=== PATIENT | female | born 1955 | race Caucasian/White ===

== ENCOUNTER 2016-11-09 06:26 | Inpatient (IN) | payer BC ==
[2016-11-08 12:10] LABS: WBC (NOT ORDERED) (RFLEX) 0 (0-5)
[2016-11-08 12:54] LABS: BASOPHILS 0.5 %; BASOPHILS ABSOLUTE 0.04 10/3/uL (0.0-0.16); EOSINOPHILS 2.1 %; EOSINOPHILS ABSOLUTE 0.18 10/3/uL (0.0-0.53); HEMOGLOBIN 14.1 g/dL (12.0-16.0); IMMATURE GRANULOCYTES 0.2 %; IMMATURE GRANULOCYTES ABSOLUTE 0.02 10/3/uL (0.0-0.11); LYMPHOCYTES 18.9 %; LYMPHOCYTES ABSOLUTE 1.63 10/3/uL (0.67-4.30); MEAN CORPUS HGB CONC 33.7 g/dL (32.0-36.0); MEAN CORPUSCULAR HEMOGLOB 32.2 pg (26.0-34.0); MEAN CORPUSCULAR VOLUME 95.4 fL (80-100); MEAN PLATELET VOLUME 9.3 fL (9.2-13.0); MONOCYTES ABSOLUTE 0.69 10/3/uL (0.21-1.20); NEUTROPHILS 70.3 %; NEUTROPHILS ABSOLUTE 6.06 10/3/uL (2.02-8.40); PLATELET COUNT 319 10/3/uL (150-400); RBC DISTRIBUTION WIDTH 13.2 % (12.0-16.0); RED CELL COUNT 4.38 10/6/uL (4.0-5.6); WHITE BLOOD CELLS 8.6 10/3/uL (4.5-10.5)
[2016-11-08 12:55] LABS: HEMATOCRIT 41.8 % (36.0-48.0); MANUAL DIFF NO %
[2016-11-08 13:02] LABS: PROTIME (NOT ORD) 13.3 SEC (12.0-14.5)
[2016-11-08 13:13] LABS: A/G RATIO 1.3 (0.7-1.9); ALBUMIN 4.2 G/DL (3.5-5.0); ALKALINE PHOSPHATASE 69 U/L (45-117); BUN (BLOOD UREA NITROGEN) 8 MG/DL (6-23); CALCIUM, SERUM 9.4 MG/DL (8.5-10.4); CHLORIDE, SERUM 100 MMOL/L (96-112); CO2 (CARBON DIOXIDE) 30 MMOL/L (24-34); CREATININE 0.64 MG/DL (0.55-1.02); GFR AFRICAN AMERICAN 112 ML/MIN (>=60); GFR NON AFRICAN AMERICAN 96 ML/MIN (>=60); GLUCOSE, SERUM 80 MG/DL (60-99); POTASSIUM, SERUM 4.2 MMOL/L (3.5-5.3); SGOT(AST) 7 U/L (5-40); SGPT(ALT) 13 U/L (5-65); SODIUM, SERUM 139 MMOL/L (135-148); TOTAL BILIRUBIN 0.4 MG/DL (0-1.2); TOTAL PROTEIN 7.4 G/DL (6.0-8.5)
[2016-11-08 13:14] LABS: GLOBULIN 3.2 G/DL (2.5-4.1)
[2016-11-08 13:54] LABS: ASCORBIC ACID (UR NOT ORDER) NEG (NEG); BILIRUBIN, URINE NEGATIVE (NEG); KETONE, URINE NEGATIVE (NEG); LEUKOCYTE ESTERASE(NOT OR NEG (NEG)
--- NOTE | ~2016-11-09 | OP ---
Record Of Operation [facility] [address] [place]. [address] NAME: CAS VAN : 55 STATUS : ADM IN [facility]#: [id number] AGE: 61 ADM/REG DATE : 11/09/16 MR#: [id number] REPORT SERV DATE: 11/10/16 DICTATED BY: JULIAN SILVA JR. DATE: 11/09/16 REPORT STATUS : Draft TRANSCRIBED BY: EDDI DATE: 11/09/16 DATE OF PROCEDURE: 11/09/2016 PREOPERATIVE DIAGNOSES: History of previous esophageal cancer, status post chemotherapy and radiation therapy, previous left upper lobe squamous cell carcinoma, status post SBRT, chronic obstructive pulmonary disease with tobacco abuse, chronic pain, anxiety disorder, right upper lobe spindle cell carcinoma. POSTOPERATIVE DIAGNOSES: History of previous esophageal cancer, status post chemotherapy and radiation therapy, previous left upper lobe squamous cell carcinoma, status post SBRT, chronic obstructive pulmonary disease with tobacco abuse, chronic pain, anxiety disorder, right upper lobe spindle cell carcinoma. NAME OF OPERATION: Bronchoscopy, right thoracoscopy with exploration, right upper lobectomy, complete mediastinal node dissection, papito stations 4R, 7, 9, 11R, and intercostal nerve block. SURGEON: Dr. Julian Silva Jr. RESIDENT SURGEON: Dr. Zen Cole. CLOTH BALER: Vicente Lai. ANESTHESIA: General endotracheal. FINDINGS: The patient was noted to have large tumor contained within the right upper lobe. Surprisingly, there were minimal adhesions. She had a partially developed minor fissure and a fully developed major fissure. There were some fibrosis around the hilum, but we were able to dissect out the vessel safely. Margins were grossly negative. Final pathology is pending. DETAILS OF OPERATION: After adequate general anesthesia, the patient was intubated. Bronchoscopy was performed noting no endobronchial lesions. There was no contraindication to resection. Mucous secretions were evacuated. A left-sided double-lumen endotracheal tube was then placed. The patient was then positioned in the left lateral decubitus position. The right chest was prepped and draped in routine sterile fashion. A small incision was made overlying the lower intercostal space. A separate anterior trocar incision was also made. Through these two incision sites, above findings were noted. It was felt this tumor was resectable. The inferior pulmonary ligament was then taken down. The hilar structures were dissected out. The superior pulmonary vein was divided preserving the middle lobe branch. Pulmonary arterial branches were divided with a vascular stapler. Bronchus was divided with CHARLY stapler. The fissure was divided with multiple firings of CHARLY stapler with tissue reinforcements. Specimen was placed within the specimen bag and brought out through anterior trocar site. Nodes from the AP window, subcarinal, inferior pulmonary ligament, as well as hilar regions were removed. An intercostal nerve block was performed. Chest was thoroughly irrigated with sterile water. A 28-[place] chest tube was then placed. Record Of Operation [facility] [address] [place]. [address] NAME: CAS VAN : 55 STATUS : ADM IN [facility]#: [id number] AGE: 61 ADM/REG DATE : 11/09/16 MR#: [id number] REPORT SERV DATE: 11/10/16 DICTATED BY: JULIAN SILVA JR. DATE: 11/09/16 REPORT STATUS : Draft TRANSCRIBED BY: EDDI DATE: 11/09/16 The lung was reinflated. The trocar sites were closed with running Vicryl sutures. The skin was closed with running monofilament suture. A Dermabond dressing was applied. The procedure was terminated at this point. The patient tolerated the procedure well and taken back to recovery room in stable condition. JANEE/EDDI Julian Silva Jr., M.D. / [id number] CC: Cristiano Salazar Jr., MD
[~2016-11-09 06:26] MED LIST: ASABAYER PO; ATV1 PO; HABIT21 TOP; KLOR-CON20 MEQ PO; MELATONIN10 M2 PO; MULTIVIT/MIN PO; NYQUIL COLD & FLU PO; OXYCCODUDL PO; PROMETHAZI6.25 MG/5 PO; PROTONIX PO; PROVENT20 INH; PROVHFA INH; SPIRIVA INH; TRANSSCOP TOP; TYLENOL LIQUID PO; WELLXL150 PO
[2016-11-09 12:43] LABS: BASOPHILS 0.1 %; BASOPHILS ABSOLUTE 0.01 10/3/uL (0.0-0.16); EOSINOPHILS 1.2 %; EOSINOPHILS ABSOLUTE 0.11 10/3/uL (0.0-0.53); HEMATOCRIT 39.2 % (36.0-48.0); HEMOGLOBIN 13.2 g/dL (12.0-16.0); IMMATURE GRANULOCYTES 0.2 %; IMMATURE GRANULOCYTES ABSOLUTE 0.02 10/3/uL (0.0-0.11); LYMPHOCYTES 10.7 %; LYMPHOCYTES ABSOLUTE 1.02 10/3/uL (0.67-4.30); MEAN CORPUS HGB CONC 33.7 g/dL (32.0-36.0); MEAN CORPUSCULAR HEMOGLOB 31.9 pg (26.0-34.0); MEAN CORPUSCULAR VOLUME 94.7 fL (80-100); MEAN PLATELET VOLUME 8.9 fL (9.2-13.0); MONOCYTES ABSOLUTE 0.38 10/3/uL (0.21-1.20); NEUTROPHILS 83.8 %; NEUTROPHILS ABSOLUTE 8.02 10/3/uL (2.02-8.40); PLATELET COUNT 273 10/3/uL (150-400); RBC DISTRIBUTION WIDTH 13.2 % (12.0-16.0); RED CELL COUNT 4.14 10/6/uL (4.0-5.6); WHITE BLOOD CELLS 9.6 10/3/uL (4.5-10.5)
[2016-11-09 12:44] LABS: MANUAL DIFF NO %
[2016-11-09 12:55] LABS: BUN (BLOOD UREA NITROGEN) 10 MG/DL (6-23); CALCIUM, SERUM 8.5 MG/DL (8.5-10.4); CHLORIDE, SERUM 106 MMOL/L (96-112); CO2 (CARBON DIOXIDE) 26 MMOL/L (24-34); CREATININE 0.71 MG/DL (0.55-1.02); GFR AFRICAN AMERICAN 107 ML/MIN (>=60); GFR NON AFRICAN AMERICAN 92 ML/MIN (>=60); POTASSIUM, SERUM 4.4 MMOL/L (3.5-5.3); SODIUM, SERUM 138 MMOL/L (135-148)
[2016-11-09 12:57] LABS: GLUCOSE, SERUM 130 MG/DL (60-99)
[2016-11-10 04:52] LABS: BASOPHILS 0 %; EOSINOPHILS 0.1 %; EOSINOPHILS ABSOLUTE 0.01 10/3/uL (0.0-0.53); HEMATOCRIT 37.3 % (36.0-48.0); HEMOGLOBIN 12.4 g/dL (12.0-16.0); IMMATURE GRANULOCYTES 0.3 %; IMMATURE GRANULOCYTES ABSOLUTE 0.03 10/3/uL (0.0-0.11); LYMPHOCYTES 11.9 %; LYMPHOCYTES ABSOLUTE 1.28 10/3/uL (0.67-4.30); MEAN CORPUS HGB CONC 33.2 g/dL (32.0-36.0); MEAN CORPUSCULAR HEMOGLOB 31.8 pg (26.0-34.0); MEAN CORPUSCULAR VOLUME 95.6 fL (80-100); MEAN PLATELET VOLUME 9.5 fL (9.2-13.0); MONOCYTES 7.4 %; NEUTROPHILS 80.3 %; NEUTROPHILS ABSOLUTE 8.67 10/3/uL (2.02-8.40); PLATELET COUNT 254 10/3/uL (150-400); RBC DISTRIBUTION WIDTH 13.3 % (12.0-16.0); WHITE BLOOD CELLS 10.8 10/3/uL (4.5-10.5)
[2016-11-10 04:53] LABS: MANUAL DIFF NO %
[2016-11-10 05:11] LABS: BUN (BLOOD UREA NITROGEN) 9 MG/DL (6-23); CALCIUM, SERUM 8.4 MG/DL (8.5-10.4); CHLORIDE, SERUM 104 MMOL/L (96-112); CO2 (CARBON DIOXIDE) 24 MMOL/L (24-34); CREATININE 0.57 MG/DL (0.55-1.02); GFR AFRICAN AMERICAN 116 ML/MIN (>=60); GFR NON AFRICAN AMERICAN 100 ML/MIN (>=60); GLUCOSE, SERUM 129 MG/DL (60-99); POTASSIUM, SERUM 4.4 MMOL/L (3.5-5.3); SODIUM, SERUM 136 MMOL/L (135-148)
[2016-11-10] MEDS ORDERED: PCET PO (10:21)
== END 2016-11-10 13:46 | disposition home or self-care (01) | DRG 165 ==
LOC: SDC/OF 06:26 → PACU 12:33 → 5NO 14:02
PROVIDERS: Thoracic Surgery (Cardiothoracic Vascular Surgery)
PROC: 0BBC4ZZ Excision of Right Upper Lung Lobe, Percutaneous Endoscopic Approach (ICD-10-PCS; principal; 2016-11-09 08:15)
PROC: 07B74ZX Excision of Thorax Lymphatic, Percutaneous Endoscopic Approach, Diagnostic (ICD-10-PCS; 2016-11-09 08:15)
DX: C34.11 Malignant neoplasm of upper lobe, right bronchus or lung (principal); J44.9 Chronic obstructive pulmonary disease, unspecified; F41.9 Anxiety disorder, unspecified; Z85.01 Personal history of malignant neoplasm of esophagus; Z92.3 Personal history of irradiation; Z92.21 Personal history of antineoplastic chemotherapy; Z87.891 Personal history of nicotine dependence
CPT/HCPCS: 36415; 71010; 71020; 80048; 80053; 81001; 82962; 83036; 85025; 85610; 86850; 86900; 86901; 87641; 88305; 88307; 88309; 88313; 93005; 94640; A9270-GY; J0690; J2250; J2270; J2370; J2405; J2710; J2795; J3010